=== PATIENT | male | born 1985 | race Caucasian/White ===

== ENCOUNTER 2017-04-15 04:17 | Emergency (ER) | payer OTHER ==
[2017-04-15 12:22] LABS: HIV (1/2) Antibody/Antigen Non-Reactive (NonReactive); HIV 1/2 INDEX 0.19 S/CO (<1.00); Hep C IgG Ab Non-Reactive (NonReactive); Hep C Index 0.11 S/CO (0-0.79)
[2017-04-15 12:54] LABS: HBSAB Concentration 162.63 mIU/mL; Hep B Surf AB Reactive (NonReactive)
== END 2017-04-15 04:58 | disposition home or self-care (01) ==
LOC: BURERS 04:17
DX: T75.89XA Other specified effects of external causes, initial encounter (principal); F17.220 Nicotine dependence, chewing tobacco, uncomplicated; W46.0XXA Contact with hypodermic needle, initial encounter
CPT/HCPCS: 36415; 86706; 86803; 87389; 99283